=== PATIENT | female | born 1990 | race Caucasian/White ===

== ENCOUNTER 2022-03-08 06:37 | Inpatient (IN) | payer OTHER, SELFPAY ==
[2022-03-08] VITALS (65 sets, daily range): BP systolic 85–124; BP diastolic 43–81; PULSE 62–93; RESP 16; TEMP 36.4–36.9; O2SAT 98–100; BMI 26.8
[2022-03-08 07:34] LABS: SARS PCR* Negative SARS-CoV-2 (Negative)
[2022-03-08] MEDS: AMPICILLIN 2 GM in 0.9 % SODIUM CHLORIDE Mini-bag 100 ML IVPB (07:50)
[2022-03-08] MEDS: LACTATED RINGERS 1000 ML 1,000 ML 125 ML IV (07:50)
--- NOTE | 2022-03-08 11:58 | PM.OBHPLI ---
OB - H&P: HPI Labor/Induction History of Present Illness Date Seen: 03/08/22 Chief Complaint: The patient is a 32 year old 1 para 1 at 38 weeks gestation by known date of conception (IVF), who presents with PROM at 0400 this morning. has been uncomplicated. She has had some cramping, no regular contractions since PROM. Chief complaint: Maternity : 1 Para: 1 Narrative: Heather Delarosa is a 32 year old female with PROM of clear fluid at 0400 this morning. Uncomplicated . GBS positive, abx started on arrival. Rh+, rubella immune. History of Present Dating criteria: other (IVF) care: good care Ultrasounds: normal 1st trimester US Labs Blood type: O (+) positive Rubella: immune RPR/VDLR: nonreactive GBS status: positive HBsAG: negative Review of Systems Status of ROS: Reports: 10 or more systems reviewed and unremarkable except as noted in History and below Meds Home Medications and Allergies Home Medications Medication Instructions Recorded Confirmed Type citalopram 20 mg tablet 20 mg PO QDAY 03/08/22 03/08/22 History ferrous sulfate 325 mg (65 mg 325 mg PO DAILY 03/08/22 03/08/22 History iron) tablet (Feosol) prenat.vits,cassi,[id number] 1 tab .Route QDAY 03/08/22 03/08/22 History Allergies Allergy/AdvReac Type Severity Reaction Status Date / Time No Known Drug Allergies Allergy Verified 03/08/22 05:12 OB - H&P: Exam Physical Exam: Vital signs: Temp Pulse Resp BP Pulse Ox 98.1 F 89 16 108/65 100 03/08/22 11:40 03/08/22 07:56 03/08/22 10:30 03/08/22 07:56 03/08/22 05:17 Constitutional: Constitutional: no acute distress Routine HEENT Exam: Head: Present atraumatic Eye: Present EOMI and normal appearance ENT: Present mucous membranes moist Routine Neck Exam: Neck: Present full ROM Routine Respiratory Exam: Respiratory: Present CTA bilaterally Routine Cardiovascular Exam: Cardiovascular: RRR Comments: no murmur Detailed Labor and Delivery Exam: Dilation (cm): 1 Effacement (%): 50 Fetus (Single): Station: -1 Routine Skin Exam: Present intact Routine Neurological Exam: Present alert and oriented X3 OB - Problem Based A/P Additional Plan (1) Term : Status: Acute (2) PROM (premature rupture of membranes): Status: Acute Plan PROM 8 hours ago, recommend starting oral cytotec Continue abx per protocol for +GBS
[2022-03-08] MEDS: AMPICILLIN 1 GM in 0.9 % SODIUM CHLORIDE Mini-bag 100 ML IVPB ×3 (12:00→20:22)
[2022-03-08] MEDS: miSOPROStoL 25 MCG/0.25 TABLET PO ×2 (12:11→14:10)
[2022-03-08] MEDS: ROPIVACAINE 0.2% 100 ml 100 ML 12 MG EPIDURAL (16:35)
[2022-03-08] MEDS: LACTATED RINGERS 1000 ML 1,000 ML 200 ML IV (16:36)
--- NOTE | 2022-03-08 16:51 | PM.ANBPRC ---
[facility] Medical History (Updated 03/08/22 @ 12:02 by Kavitha Mathis MD) Term Social History Smoking Status: Never smoker Meds Home Medications and Allergies Home Medications Medication Instructions Recorded Confirmed Type citalopram 20 mg tablet 20 mg PO QDAY 03/08/22 03/08/22 History ferrous sulfate 325 mg (65 mg 325 mg PO DAILY 03/08/22 03/08/22 History iron) tablet (Feosol) prenat.vits,cassi,[id number] 1 tab .Route QDAY 03/08/22 03/08/22 History Allergies Allergy/AdvReac Type Severity Reaction Status Date / Time No Known Drug Allergies Allergy Verified 03/08/22 05:12 Results Labs Labs: Laboratory Results - last 24 hr 03/08/22 06:24 SARS-CoV-2 (PCR) Negative SARS-CoV-2 Vital Signs Vital Signs: Last Vital Signs Temp 98.5 F 03/08/22 15:55 Pulse 79 03/08/22 16:51 Resp 16 03/08/22 10:30 BP 93/50 L 03/08/22 16:51 Pulse Ox 100 03/08/22 16:45 Weight: 74.843 kg Height: 167.01 cm Anesthesia Procedures Epidural Insertion Patient Location: OB Start Time: 16:30 Stop Time: 17:30 Start Date: 03/08/22 Stop Date: 03/08/22 Reason for Block: procedure for pain Patient Position: sitting Performed By: Chepe Smith Preanesthetic Checklist: IV checked, risks and benefits discussed, monitors and equipment checked, pre-op evaluation and anesthesia consent Prep: chlorhexidine gluconate Monitoring: blood pressure monitoring, continuous pulse oximetry and heart rate Approach: midline Vertebral Space: lumbar (1-5) Epidural Technique: ORIANA saline Needle Type: Tuohy needle Injection Technique: continuous catheter Needle gauge: 17 Needle Length (cm): 10 cm Needle Insertion Depth (cm): 5 Catheter Gauge: 21 Catheter Type: multi-orifice Catheter at skin depth (cm): 9 Test Dose Result: negative
--- NOTE | 2022-03-08 17:00 | W.ANESCHARGE ---
Anesthesia Charges Start Date/Time Anesthesia Start Date: 03/08/22 Anesthesia Start Time: 16:30 Stop Date/Time Anesthesia Stop Date: 03/08/22 Anesthesia Stop Time: 17:30 Summary Emergency: No
[2022-03-08] MEDS: miSOPROStoL 800 MCG/4 TABLET PR (21:35)
[2022-03-08] MEDS: TRANEXAMIC ACID 100 MG/ML INJ 1000 MG IV (21:40)
[2022-03-08] MEDS: METHYLERGONOVINE MALEATE 0.2 MG/ML INJ IM (21:45)
[2022-03-08] MEDS: LIDOCAINE 1% MDV 20 ML INJECTION (21:46)
--- NOTE | 2022-03-08 22:06 | P.OBPRC_ITS ---
Procedure Procedure Done: [facility] Procedure Details: The patient is a 32 year-old admitted on 03/08/2022 at 38 Weeks, 0 Days gestation for PROM at 0400 on the morning of admission.? Cervical exam on admission was 1 cm/50 % effaced/-1 station with membranes ruptured in vertex presentation.? Contractions were absent.? heart rate demonstrated baseline 150 bpm with moderate variability, + accelerations, - decelerations; a category 1 tracing.? SROM occurred at 0400 with clear fluid. ? Labor Analgesia:? Epidural at 1700 ? Pitocin:? no ? Labor onset:? 1699 ? Complete:? 183 ? Pushing:? 1848 ? heart tones during second stage were category 2. ? At 2128 a viable femal infant delivered in vertex OA presentation over intact perineum via spontaneous vaginal delivery.? Infant was placed on maternal abdomen.? Cord was clamped and cut after a 30-60 second delay.? Nose and mouth were bulb suctioned.? Infant weight pending.? 6 at 1 minute and 8 at 5 minutes.? Shoulder dystocia: no.? Nuchal cord: no. ? Placenta delivered spontaneously and complete at 2131 with a 3 vessel cord. At this time, patient was noted to be bleeding briskly, 800 mcg cytotec DE given and bimanual massage provided. Because of continued bleeding IM TXA and methergine were given. After these measures, uterus was firm and bleeding normal. ? Mother and infant were stable after delivery. ? Lacerations:? 1st degree vaginal, repaired with 3-0 vicryl suture in one figure of 8 suture. ? Blood loss: 550 mL. Blood loss measurement type: QBL ? Sponge and needles counts are correct. Events: Premature Rupture of Membrane Induction method: per misoprostol protocol Delivery monitor: external FHT Route of delivery: Laceration description: Vaginal - 1st Degree Delivery repair: Vicryl Estimated blood loss (mL): 550 Anesthesia type: Epidural Gender: Female presentation: vertex Placental Delivery Description: Spontaneous Cord Description: 3 Vessels
[2022-03-08] MEDS: IBUPROFEN 600 MG TABLET PO (23:51)
[2022-03-09 04:00] VITALS: BP 107/59; PULSE 66; RESP 14; TEMP 36.6; O2SAT 97
[2022-03-09] MEDS: ACETAMINOPHEN 500 MG TABLET 1000 MG PO ×3 (04:17→18:04)
[2022-03-09 07:29] LABS: Hemoglobin* 11.2 gm/dL (12.0-16.0)
[2022-03-09] MEDS: DOCUSATE SODIUM 100 MG CAPSULE PO (08:12)
[2022-03-09] MEDS: IBUPROFEN 600 MG TABLET PO ×2 (08:13→14:56)
[2022-03-09] MEDS: CITALOPRAM HYDROBROMIDE 20 MG TABLET PO (08:13)
[2022-03-09 08:27] VITALS: BP 96/65; PULSE 54; RESP 16; TEMP 36.3; O2SAT 99
[2022-03-09] MEDS: LANOLIN CREAM 1 APPLIC TOPICAL (11:55)
--- NOTE | 2022-03-09 12:11 | P.OBPN_ITS ---
OB - PN:Subj Subjective Date Seen: 03/09/22 Patient comments OB post-: pain well controlled and tolerating diet [place] status: and doing well [place] feeding status: exclusively Narrative: Heather is a pp day 1 after . She has no complaints today. Pain well managed with tylenol and ibuprofen. Lochia moderate, occasional cramping. OB - PN: Obj Exam Physical Exam: Vital signs: Temp Pulse Resp BP Pulse Ox O2 Del Method 97.4 F L 54 L 16 96/65 99 03/09/22 08:27 03/09/22 08:27 03/09/22 08:27 03/09/22 08:27 03/09/22 08:27 03/09/22 08:27 Constitutional: Constitutional: no acute distress Detailed Abdominal Exam: Comments: Soft uterus 1 cm below umbilicus. No tenderness. OB - PN: Obj Data Labs Labs: Laboratory Results - last 24 hr 03/09/22 07:21 Hgb 11.2 L OB - PN: A/P Vaginal Delivery Assessment and Plan (1) Term : Status: Resolved Assessment and Plan: PP day #1 after (2) PROM (premature rupture of membranes): Status: Resolved Plan Plan: routine care Comments: likely discharge tomorrow.
[2022-03-09 12:23] VITALS: BP 104/64; PULSE 83; RESP 16; TEMP 36.8; O2SAT 96
[2022-03-09 15:34] VITALS: BP 97/61; PULSE 73; RESP 16; TEMP 36.6; O2SAT 97
[2022-03-09 20:00] VITALS: BP 92/61; PULSE 86; RESP 16; TEMP 36.3; O2SAT 95
[2022-03-10] VITALS: BP 91/55; PULSE 78; RESP 16; TEMP 36.4; O2SAT 95
[2022-03-10] MEDS: IBUPROFEN 600 MG TABLET PO ×2 (00:14→08:39)
[2022-03-10] MEDS: ACETAMINOPHEN 500 MG TABLET 1000 MG PO ×2 (03:27→12:59)
--- NOTE | 2022-03-10 07:50 | PM.OBDSVD1 ---
DS: Providers Provider Date Seen: 03/10/22 Date of admission: 03/08/22 06:37 Primary care physician: Kavitha Mathis MD Admitting Clinician: Kavitha Mathis MD Attending Physician on discharge: Kavitha Mathis MD DS: Diagnosis Discharge Diagnosis (1) Vaginal delivery: Status: Acute Exam Const: Vital Signs, click to edit/add: Vital Signs - 24 hr 03/09/22 08:27 03/09/22 12:23 03/09/22 15:34 Temperature 97.4 F L 98.3 F 97.9 F Pulse Rate [Pulse Oximeter] 54 L 83 73 Respiratory Rate 16 16 16 Blood Pressure [Le ft Arm] 96/65 104/64 97/61 Pulse Oximetry 99 96 97 Oxygen Delivery Me thod Room Air Room Air Room Air 03/09/22 20:00 03/10/22 00:00 Temperature 97.3 F L 97.5 F L Pulse Rate [Pulse Oximeter] 86 78 Respiratory Rate 16 16 Blood Pressure [Le ft Arm] 92/61 91/55 L Pulse Oximetry 95 95 Oxygen Delivery Me thod Room Air Room Air Common normals: no apparent distress General appearance: comfortable GI: Other: soft, non tender, uterus at umbilicus. Extremity: Other: without edema, redness or tenderness OB - DS: Summary Hospital Course Hospital Course: The patient is a 32 year old G 1 P 1 at 38 weeks gestation that was admitted to the Center on 03/08/22 for PROM. She had an uncomplicated vaginal delivery. She delivered a viable female . She is breast feeding. the patient has done well. Peripartum Data Infant delivery method: Vaginal Laceration description: Vaginal - 1st Degree complications: none [place] Gender: Female Infant Discharge Plan: Home [place] A Infant Gender: Female Discharge Plan: Home Time Spent with Patient Time attestation: Total time spent providing and/or coordinating discharge services: Time spent: Less than 30 minutes Discharge Plan Discharge Disposition: Home, Self-Care Date of Admission: 03/08/22 06:37 Attending Physician on Admission: Kavitha Mathis Attending Provider on Discharge: Kavitha Mathis Primary Care Provider: Kavitha Mathis Condition: Improved Anticipated Discharge Date/Time: 03/10/22 07:53 Discharge Medications: Continued citalopram 20 mg tablet 20 mg PO QDAY Label Comments: TAKE 1 TABLET BY MOUTH EVERY MORNING prenat.vits,cassi,[id number] 1 tab .Route QDAY Discontinued ferrous sulfate [Feosol] 325 mg (65 mg iron) tablet 325 mg PO DAILY Discharge Orders: Discharge Order (Routine); Ordered 03/10/22 Ordered By: Kavitha Mathis Patient Education: OB Over the Counter Medication Information Activity Level: No Restrictions Activity Detail: Pelvic rest [id number]. Discharge Diet: Regular Follow Up Appointments: Kavitha Mathis MD [Primary Care Provider] - [facility]
[2022-03-10] MEDS: DOCUSATE SODIUM 100 MG CAPSULE PO (08:39)
[2022-03-10] MEDS: CITALOPRAM HYDROBROMIDE 20 MG TABLET PO (08:47)
[2022-03-10 09:11] VITALS: BP 102/62; PULSE 78; RESP 16; TEMP 36.4; O2SAT 97
== END 2022-03-10 14:15 | disposition home or self-care (01) | DRG 807 ==
LOC: OB OUT 06:41 → OB 08:28
PROVIDERS: Admitting Provider Family Medicine; PCP Family Medicine; Visit Provider Family Medicine
DX: O42.02 Full-term premature rupture of membranes, onset of labor within 24 hours of rupture (principal); Z37.0 Single live birth; O99.824 Streptococcus B carrier state complicating childbirth; O70.0 First degree perineal laceration during delivery; Z3A.38 38 weeks gestation of pregnancy
CPT/HCPCS: 01967; 36415; 59200; 84112; 85018; 87635; 99211; A9270; J0290; J2210; J2795; J7120; S0020

== ENCOUNTER 2022-03-17 15:08 | Outpatient (CLI) | payer OTHER, SELFPAY ==
--- NOTE | 2022-03-17 15:10 | P.LACCB_ITS ---
Consult Note - Mom Date of Visit Date of visit: 03/17/22 business continuity consultant: Torri Mccall Visit Code: Visit Patient's Information Phone number: [phone] : 1 Para: 1 Allergies No Known Drug Allergies Allergy (Verified 03/08/22 05:12) Mother's Medical History: Medical History (Updated 03/19/22 @ 06:55 by Lis Palmer MD) anxiety Work Plans: returns to work in 12 weeks at [facility] [facility] Delivery Information Delivery type: Vaginal Weeks Gestation: 38.0 Gestational Age: AGA Weight: 3.175 kg Discharge Weight: 2918 kg Baby's Information Baby's Age at Visit: 9 days Baby's Provider or Clinic: Dr. Mathis Jaundice: Yes (to abdomen, resolving) Reason for Consult Reason for Consult: pre and post feeding weight Past Experience Past Experience: No Current Frequency of Day Feedings: every 2 hours around the clock Both Breasts: No (mom attempts but baby hasn't been latching well) Pumping Pumping: Yes (TID) Quantity Pumped: .5 - 1 oz total each time Supplementing EMB Supplement: Yes (baby takes 1 - 2 oz EBM or formula with every feeding) Formula Supplement: Yes Baby Elimination Number of Wet Diapers a Day: at least 9 Number of BM a Day: at least 3; yellow and seedy Breast/Nipple Condition Breast Information: WNL Engorgement: No Maternal Nipple Condition - Left: Common Nipple Maternal Nipple Condition - Right: Common Nipple Sore Nipples: No (resolved) Onsite Pre-Feed weight: 3.064 kg Post-Feed weight: 3.13 kg Milk Transferred (mL): 66 Pre-Nursing Left Nipple: Within Normal Limits Pre-Nursing Right Nipple: Within Normal Limits Post-Nursing Left Nipple: Within Normal Limits Post-Nursing Right Nipple: Within Normal Limits Assessments/Interventions Assessments/Interventions: Met with mom and this now 9 day old ex- term AGA baby for consult.? Mom reports she's been attempting to nurse but baby has a hard time latching so she's been supplementing 1 - 2 oz EBM or formula at every feeding.? Mom is pumping TID and up until today was getting about .5 oz but with a pumping session today she got about 2 oz total.? Mom also has questions re: her pump. Breasts WNL- symmetrical with rounded lower quadrants; mom reports noticing some breast changes during .? Her nipples are everted and don't flatten or retract with compression; no damage noted although mom reports a few days ago they were scabbed and much more sore. Baby has gained 35 grams/day since her last visit on 03/15 and is now 4% below BW at 9 DOL.? Per mom she has equal ROM when moving her head and extremities.? She has some scabbing to the left parietal area and mom reports she had something like a blister there caused by how her head was coming down the vaginal canal during labor.? She also has mild jaundice to her chest but per mom it's resolving; bili last checked on 03/14 and 03/15 with almost no increase in value.? Baby's palate and upper frenulum are WNL.? She easily extends her tongue past the gum line when sucking on a finger and the tongue has good lateral movement.? Lower frenulum hard to visualize, posterior? With verbal coaching re: hand position and using her thumb to tip her nipple to baby's nose, mom was able to latch baby independently to both sides.? Baby had a wide latch, mom was comfortable, nutritive suckling was observed, and swallowing was heard.? Mom did a good job of rousing baby when she started to fall asleep.? Baby nursed for about 30 minutes total and transferred 66 ml.? A pumping session was observed and tips given on how to use it.? Nipples were measured and it was suggested mom order some inserts to get the flange opening closer to 15 mm. Plan: 1. Continue to practice latching baby using the ideas above to get a wide latch; offer both sides each time and keep her awake and active at the breast.? OK to watch baby's cues and feed every 2 - 3 hours. 2. No medical need to continue supplementing, but if after nursing baby still seems hungry mom can either put her back on the breast or offer a little EBM. 3. Suggested she continue pumping TID until she feels more confident about her supply and/or baby no longer wants supplement after nursing. 4. Spoke with Dr. Mathis this morning: b/c baby has gained weight well since her visit on 03/15 and she had a good session in clinic today, ok to f/u next week for her 2 week WCC.? Reviewed with mom reasons to schedule an appointment earlier than next week.? 5. Offered a one month weight check in but mom declined today.? Suggested Baby Talk. Meds Home Medications and Allergies Home Medications Medication Instructions Recorded Confirmed Type citalopram 20 mg tablet 20 mg PO QDAY 03/08/22 03/08/22 History prenat.vits,cassi,[id number] 1 tab .Route QDAY 03/08/22 03/08/22 History Allergies Allergy/AdvReac Type Severity Reaction Status Date / Time No Known Drug Allergies Allergy Verified 03/08/22 05:12
== END 2022-03-17 15:09 | disposition home or self-care (01) ==
PROVIDERS: PCP Family Medicine; Visit Provider Family Medicine
DX: Z39.1 Encounter for care and examination of lactating mother (principal)
CPT/HCPCS: 99211

== ENCOUNTER 2022-03-18 23:25 | Emergency (ER) | payer OTHER, SELFPAY ==
[2022-03-18 23:44] VITALS: BP 120/85; PULSE 61; RESP 18; TEMP 36.6; O2SAT 98
--- NOTE | 2022-03-19 00:20 | ED.PSYCH ---
HPI - Psych General Chief Complaint: Psychiatric Problem/Disorder Stated Complaint: mental health Time Seen by Provider: 03/18/22 23:52 Source: patient Mode of arrival: ambulatory Limitations: no limitations History of Present Illness HPI Narrative: 32-year-old status post uncomplicated and delivery and days ago presents to the ED with worsening symptoms. She has a notable history of depression and anxiety, diagnosed about 8 years ago, has been on citalopram since, including during the . was conceived through IVF, otherwise uncomplicated. She has been in communication with her Ob provider, her citalopram was increased 4 days ago from 20-30 mg. She has no personal history of suicide attempt or mental health hospitalization. She states that starting 1-2 days after delivery, she started having increased anxiety which has been made worse by sleep deprivation and struggles with breast feeding. She is currently trying to feed the baby at the breast, pumping sometimes and also supplementing with formula. She has a spouse who is very helpful and both sets of their parents are involved and she reports that they are supportive and helpful also. She says that she has increased feelings of sadness and that she also has had fleeting thoughts of harming the baby, no specific plan. She has been active in therapy in the past and has a new appointment scheduled for 9:00 a.m. which is a little over 8 hours from now. This is specifically with a counselor. No medical or financial complications for them currently. Baby is healthy, safely attended to by patient's spouse at home. She reports her breasts were last emptied about 5-1/2 hours ago, did not bring her pump nor plan to continue emptying the breast while here. Partner is supportive of her coming for assessment. Reports that she only shared with him the concerns with her moods just tonight. She is noticing some tightness in the chest when she gets anxious but no palpitations, no syncope. She has no pertinent cardiac history. Is not using any alcohol, has no history of substance abuse. Denies any stimulant or other chemical use. She is not having any personal thoughts of self-harm no prior suicide attempt. No prior inpatient hospitalization. Past medical history she reports benign besides prior infertility workup. Surgical history is only notable for wisdom tooth extraction besides the retrieval process. Only home medication is citalopram, currently dosed at 30 mg once daily. Denies allergies. Socially, with good family support, positive financial situation, no substance abuse. Related Data Home Medications Medication Instructions Recorded Confirmed citalopram 20 mg tablet 20 mg PO QDAY 03/08/22 03/08/22 prenat.vits,cassi,[id number] 1 tab .Route QDAY 03/08/22 03/08/22 Previous Rx's Medication Instructions Recorded hydroxyzine HCl 25 mg tablet 25 - 50 mg PO TID PRN #40 tabs 03/19/22 Allergies Allergy/AdvReac Type Severity Reaction Status Date / Time No Known Drug Allergies Allergy Verified 03/08/22 05:12 Review of Systems Narrative: Medically reports that she is doing well with the exception of the mental health struggles, ROS is otherwise negative times 12 systems today. [facility] Medical History (Updated 03/19/22 @ 06:55 by Lis Palmer MD) Term Vaginal delivery Social History Smoking Status: Never smoker Do you use any of these nicotine containing products: None Second hand tobacco smoke exposure: No How often do you have a drink containing alcohol: never AUDIT-C Alcohol total score: 0 Non-prescribed substance use: denies use service: No Exam Const: Vital Signs, click to edit/add: Vital Signs - 24 hr 03/18/22 23:44 Temperature 97.8 F Pulse Rate [Right Pulse Oximeter] 61 Respiratory Rate 18 Blood Pressure [Ri ght Upper Arm] 120/85 Pulse Oximetry 98 Oxygen Delivery Me thod Room Air Documenting provider has reviewed patient's vital signs: yes Common normals: no apparent distress General appearance: cooperative HENMT: Common normals: normocephalic Head and scalp: normocephalic Other: Oropharynx covered with mask. Eye: Common normals: EOMs intact bilaterally, conjunctivae normal and no scleral icterus Conjunctiva: conjunctiva(e) normal Other: Normal visual tracking Neck & C-Spine: Common normals: full ROM and no lymphadenopathy Resp: Common normals: normal respiratory effort, no use of accessory muscles and clear to auscultation bilaterally Effort & inspection: able to speak in complete sentences Auscultation: clear to auscultation bilaterally Cardio: Common normals: regular rate, regular rhythm, S1 normal heart sound, S2 normal heart sound, no murmurs and peripheral pulses 2+ throughout Rate: regular rate Rhythm: regular rhythm Heart sounds: S1 normal and S2 normal Peripheral pulses: pulses 2+ throughout GI: Common normals: Normal to inspection, nondistended, normoactive bowel sounds present, soft to palpation, non-tender and no hepatosplenomegaly Palpation: soft and no hepatosplenomegaly Other: Fundal height not palpable. Extremity: Common normals: normal to inspection, full ROM and no pedal edema Neuro: Speech: speech normal Motor exam: strength 5/5 throughout, no tremor noted and no movement abnormalities noted Psych: Common normals: thought process normal Attitude: calm and engaged Mood and affect: depressed mood (Mild but with excellent insight.) Thought process: normal thought process Thought content: normal thought content Memory/cognition: memory grossly intact Insight: insight good Judgement: judgment good Skin: Common normals: no rashes or lesions noted Narrative: No bruising, scars, no signs of self-injury. General skin exam: no rashes or lesions noted Course Vital Signs Vital signs: Initial Vital Signs Temperature 97.8 F 03/18/22 23:44 Temperature Source Temporal Artery Scan 03/18/22 23:44 Pulse Rate 61 03/18/22 23:44 Pulse Rhythm 03/18/22 23:44 Respiratory Rate 18 03/18/22 23:44 Blood Pressure 120/85 03/18/22 23:44 Blood Pressure Mean 96 03/18/22 23:44 Blood Pressure Position Semi-Fowlers 03/18/22 23:44 Pulse Oximetry 98 03/18/22 23:44 Oxygen Delivery Method 03/18/22 23:44 Vital Signs Temperature 97.8 F 03/18/22 23:44 Pulse Rate 61 03/18/22 23:44 Respiratory Rate 18 03/18/22 23:44 Blood Pressure 120/85 03/18/22 23:44 Pulse Oximetry 98 03/18/22 23:44 Oxygen Delivery Method 03/18/22 23:44 Temperature 97.8 F 03/18/22 23:44 Pulse Rate 61 03/18/22 23:44 Respiratory Rate 18 03/18/22 23:44 Blood Pressure 120/85 03/18/22 23:44 Pulse Oximetry 98 03/18/22 23:44 Oxygen Delivery Method 03/18/22 23:44 MDM - Psych MDM Narrative Medical decision making narrative: Counseled patient on findings, recommend deck assessment. We both agree that labs will not likely be beneficial initially. My initial impression is that she would not likely need to be hospitalized and seems to have good resources and arranged planned outpatient. Awaiting assessment from psychologist for further instruction. Update 330: Spoke with Frieda from [facility], S her conversation with patient is reviewed. At this time, Frieda recommends that we let the patient rest, sleep in our ED for the next 4 hours. Does not think she would benefit from hospitalization at this time. If she is not feeling better in the morning hours, she will complete her psychology appointment on her phone and we will repeat the deck assessment per Frieda's recommendation. Discussed the risks and benefits of Vistaril. I discussed this further with the patient. There is some concern that this medication would decrease her milk supply. Patient is uncertain if she would want to try this. Frieda make recommendations for manager supply chain. Will plan to re-evaluate at 7:30 a.m.. Repeat evaluation 7:30 a.m.: Patient is hesitant leaf thinking that she is safe to go home, feeling better after sleeping. Requests to pump breast milk again before she leaves which we will arrange for her. She is safe to drive herself home. Discharge plan has been provided from [facility] regarding safety, followups if not improving. She will be given these prior to discharge. Alarm symptoms were coming back to the ED reviewed. Stressed the importance of using her support system to get more sleep. Stress safety plan if she feels she is unsafe around the baby. Discussed the risks and benefits of Vistaril, she would like a prescription to have for this on hand, prescription is provided. Use discussed. Discussed potential for decreased milk supply on this medication. Discharge Plan Discharge Clinical Impression: Post- depression Patient Disposition: Home w/ Parent or Adult Condition: Improved Instructions: Depression (DC) Additional Instructions: Keep your appointment with your counselor for today. Follow-up plan of care from [facility] that was discussed in the emergency department. They will help arrange a provider who can help manage medications for you, they will call you with this information. Continue taking your citalopram in the interim. Make a plan with her family and her partner to switch off childcare duties overnight to allow you to get at least 4 hours of uninterrupted sleep. Make plans to go to sleep when the baby does, even if that means less time with your partner initially. Allow them to take the 1st, then potentially you take the 2nd to allow both of you to get some uninterrupted sleep. Reviewed the warning signs and alarm symptoms that we discussed. I have given a prescription for hydroxyzine, as we also discussed. This has a small potential to decrease her milk supply slightly but may be beneficial overall. You may take this 1-2 tablets 3 times daily as needed for significant anxiety. Come back to the emergency department if your symptoms worsen significantly. Prescriptions: New hydroxyzine HCl 25 mg tablet 25 - 50 mg PO TID PRNQty: 40 1RF Rx Instructions: Max of 4 pills per day No Action citalopram 20 mg tablet 20 mg PO QDAY Label Comments: TAKE 1 TABLET BY MOUTH EVERY MORNING prenat.vits,cassi,[id number] 1 tab .Route QDAY Follow Up/Referrals: Kavitha Mathis MD [Primary Care Provider] - Stand Alone Forms: [employer] Info Instructions
--- OUTSIDE RECORDS SUMMARY | 2022-03-19 00:51 | XMS_ITS | Clinical Summary ---
:1990 Author Organization [facility] [place] [address] Care Team Providers Name Role Phone Pcp, No Primary Care Provider Unavailable Allergies No known active allergies Medications Medication Sig Dispensed Refills Start Date End Date Status vitamin-folic Take 1 tablet by 0 03/01/2019 Active acid 1 mg ( mouth once daily. RX) tablet/capsule citalopram (CELEXA) 20 Take 1 Tablet (20 90 Tablet 3 2 Active mg tabletIndications: mg) by mouth every Anxiety morning. psyllium powd Mix 1 tsp in 283 g 11 08/28/2021 Ac tive liquid then take by mouth once daily if needed for Constipation. ferrous sulfate, 65 mg Take 1 Tablet (325 0 10/03/19 22 Active elemental, tablet mg) by mouth once daily. citalopram (CELEXA) 10 Take 1 Tablet (10 90 Tablet 1 2 Active mg tabletIndications: mg) by mouth every Anxiety morning. Take with 20 mg tab for total for 30 mg/day Active Problems Problem Noted Date 10/13/2021 Overview: Formatting of this note is dif ferent from the original. Component Latest Ref Rng & Units 02/22/2022 HEMOGLOBIN 12.0 - 16.0 g/dL 11.0 (L) MCV 80 - 100 fL 98 Vaginal/Rectal OB Strep B PCR Positive (A) HEPATITIS C ANTIBODY Non-Reactive Non-Reactive Estimated Date of Delivery: 03/21/22 Patient's last menstrual period was 05/24 (exact date). Last Tdap- 12/28/2021 Last Flu vaccine- 01/27/2022 Glucose (GTT) result- Component Latest Ref Rng & Units 12/28/2021 HEMOGLOBIN 12.0 - 16.0 g/dL 10.6 (L) MCV 80 - 100 fL 98 TREPONEMA PALLIDUM Negative Negative GLUCOSE,GESTATIONAL 65 - 140 mg/dL 80 20 week US: FINDINGS: Sonographic imaging demonstrates a singl e living intrauterine gestation. Fetus demonstrates a regular cardiac rate of 146 beats per minute. Fetus has a transverse position, head maternal left. The place nta lies posterior without evidence of p lacenta previa. Amniotic fluid volume appears normal. Single deepest vertical pocket: 2.9 cm. The cervix is closed and measures 4.1 cm in length. The composite ul trasound gestational age is calculated a t 19 weeks 5 days with an estimated sonographic due date of 03/24/2022. The estimated weight is 318 grams which lies at the 31st %. The following biometric measurements wer e obtained: Biparietal diameter: 4.4 cm/19 weeks 3 d ays 19th% Head circumference: 16.7 cm/19 weeks 3 d ays 12th% Abdominal circumference: 15.1 cm/20 week s 3 days 51st% Femur length: 3.1 cm/19 weeks 4 days 21s t% The HC/AC ratio measures: 1.10 range (1. 09-1.26) On anatomic survey, there is a normal ap pearance of the cerebral ventricles, cavum septi pellucidi, cisterna magna and cerebellum. The nose, lips, and facial profile appear normal. The cervical, t horacic and lumbar spine are not well vi sualized due to position. There is a normal four-chamber heart view and the left and right ventricular outflow tracts appear normal. The diaphragm and stomach appear normal. The kidneys and bladder also appear normal. There is a normal three-vessel cord and cord insertion site. The four extremities appear normal. IMPRESSION: Incomplete visualization of the cervical , thoracic and lumbar spine due to position. Short-term follow-up recommended. Remainder of the anatomic survey is normal. Sonographic gestational age 19 weeks 5 d ays and sonographic due date 03/24/2022. Good correlation with dates. No Known Allergies OB History Para Term AB Living 1 0 0 0 0 0 SAB IAB Ectopic Multiple Live Births 0 0 0 0 0 # Outcome Date GA Lbr Sedrick/2nd Weight Sex Delivery Anes PTL Lv 1 Current Create lab flowsheet for OB labs- Component Latest Ref Rng & Units 09/04/2021 022 09/04/2021 3:16 PM 3:16 PM 3:16 PM HEMOGLOBIN 12.0 - 16.0 g/dL 10.5 (L) MCV 80 - 100 fL 95 ANTIBODY SCREEN Negative Negative SPECIMEN EXPIRATION DATE/TIME 09/07/21 23:59 RUBELLA IGG ANTIBODY Positive 5.36 CHLAMYDIA PROBE N GONORRHOEAE PROBE HIV-1/HIV-2 ANTIBODY Non-Reactive Non-Reactive ABORH O Rh Positive HBSAG Nonreactive Nonreactive TREPONEMA PALLIDUM Negative Negative Component Latest Ref Rng & Units 09/04/2021 3:21 PM HEMOGLOBIN 12.0 - 16.0 g/dL MCV 80 - 100 fL ANTIBODY SCREEN Negative SPECIMEN EXPIRATION DATE/TIME RUBELLA IGG ANTIBODY CHLAMYDIA PROBE Negative N GONORRHOEAE PROBE Negative HIV-1/HIV-2 ANTIBODY Non-Reactive ABORH HBSAG Nonreactive TREPONEMA PALLIDUM Negative Past Medical History: . Date ? ? Anxiety Past Surgical History: . Laterality Date ? ? wisdom Bilateral age 20 No data on file. 2021 Problems (from 08/28/21 t o present) No problems associated with this episod lorna Munoz RN.....10/13/2021 9:09 AM Generalized anxiety disorder 11/01/2019 Resolved Problems Problem Noted Date Resolved Date Anxiety 12/05/2018 11/01/2019 Encounters Date Type Specialty Care Team Description 03/15/2022 Office Visit Kavitha Mathis Anxi ety MD 03/15/2022 Travel 03/09/2022 Orders Only Scanner <No scans attac hed> 03/08/2022 Orders Only Scanner <No scans attac hed> 03/01/2022 OB Encounter Kavitha Mathis Pren atal Care (37wk 1d/Mild crampaniyah dave ar to menses cramping.) 03/01/2022 Travel 02/22/2022 OB Encounter Kavitha Mathis Pren atal Care (36wk 1d/Worsening V. Veins/Some pain in lower p meena maybe associated with V. Veins) 02/22/2022 Travel 02/08/2022 OB Encounter Kavitha Mathis Pren atal Care (34w 1d/Varicose vei n on vulva ) 02/08/2022 Travel 01/27/2022 OB Encounter Kavitha Mathis Pren atal Care (32w 3d) 01/27/2022 Travel 01/18/2022 OB Encounter Kavitha Mathis Pren atal Care (31w 1d/Feeling a bi t more fatigued. /Talk plan) 01/18/2022 Travel 12/28/2021 OB Encounter Kavitha Mathis Pren atal Care (28w 1d/Skin tag on left nip ple.) 12/28/2021 Orders Only Lab, [facility] 12/28/2021 Travel from Last 3 Months Immunizations Name Administration Dates Next Due DTP 01/04/1995, 07/27/1991, 1990, 1990, 1990 Hepatitis A (Peds) 01/07/2001, 12/01/1999 Hepatitis B (Peds) 10/04/1994, 02/23/1994, 01/14/1994 Hib Conjugate, Unspecified 01/04/1995 Influenza A (H1N1), Inactivated 05/09/2009 Influenza, IIV3 (Age >=3 years) 02/21/2016, 04/13/2013 Influenza, IIV4 01/27/2022, 02/28/2021, 03/01/2019, 02/05/2018 Influenza, IIV4 (=>6mos) MDV 02/17/2020, 04/10/2017 Influenza, ccIIV3 (Age >=18 Years) 01/22/2015 MMR 12/26/1995, 04/16/1991 Meningococcal Vaccine (Menactra) 12/19/2007 Polio Virus, Unspecified 01/04/1995, 07/27/1991, 1990, 1990 Td (Age >=7 Years) 01/09/2007, 01/05/2002 Tdap 12/28/2021, 10/03/2017 Typhoid (injectable) 05/13/2010 Typhoid (oral) 11/29/2011 Yellow Fever 11/29/2011 Family History Medical History Relation Name Comments Anxiety disorder Brother Anxiety disorder Father Cancer-breast Maternal Grandmother Osteoarthritis Mother s/p bilateral TK A Retinal detachment Mother Cancer-breast Paternal Grandmother Relation Name Status Comments Brother Father Maternal Grandmother Mother Paternal Grandmother Social History Tobacco Use Types Packs/Day Years Used Date Never Smoker Smokeless Tobacco: Never Used Tobacco Cessation: Counseling Given: Yes Alcohol Use Standard Drinks/Week Comments Yes 0 (1 standard drink = 0.6 oz pure alcoho l) Alcohol Habits Answer Date Recorded How often do you have a drink containing alcohol? Monthly or less 12/05/2018 How many drinks containing alcohol do you have on a 1 or 2 12/05/2018 typical day when you are drinking? How often do you have six or more drinks on one Never 12/05/2018 occasion? Comment: Not asked Sex Assigned at Date Recorded Not on file COVID-19 Exposure Response Date Recorded In the last 10 days, have you been in contact No / Unsure 03/15/2022 10:54 AM CDT with someone who was confirmed or suspected to have Coronavirus/COVID-19? Obstetrics History Para Term AB IAB SAB Ectopic Multiple Living Live Births 1 Date Outcome GA Total Labor/2nd/3rd Weight Sex Delivery Anes PTL Gretta A 1 A5 Name Clin Labor OB Episode Summary Episode Dates Estimated Date of Pregravid Weight TWG (As of ) Delivery 08/28/2021 - Present 03/21/2022 (03/19/2022) Progress Notes 03/01/2022 - 37wKavitha Moran MD SUBJECTIVE: Heather Nolasco is a 32 y.o. female at 37+ 1 weeks. No concerns. See visit comments. OBJECTIVE: see OB vitals flow sheet ASSESSMENT : 37+1 weeks gestation with no complicatio ns PLAN: Labor signs and symptoms reviewed with p atient including painful regular contractions or leaking fluid. RTC 1 weeks. Kavitha Mathis MD .............. ...... 03/01/2022 8:46 AM 02/22/2022 - 36wKavitha Moran MD SUBJECTIVE: Heather Nolasco is a 32 y.o. female at 36+ 1 weeks. No concerns other than ongoing varicose veins and hemorrhoids. See visit comments. OBJECTIVE: see OB vitals flow sheet ASSESSMENT : 36+1 weeks gestation with no complicatio ns PLAN: Labor signs and symptoms reviewed with p atient including painful regular contractions or leaking fluid. GBS and hemoglobin done today RTC 1 weeks. Kavitha Mathis MD .............. ...... 02/22/2022 8:30 AM 02/08/2022 - 34w1d - Kavitha Mathis MD SUBJECTIVE: Heather Nolasco is a 32 y.o. female at 34+ 1 weeks. She has noted a varicose vein on the vul va and possibly a hemorrhoid. Neither is particularly painful. See visit comments. OBJECTIVE: see OB vitals flow sheet Varicose vein on left labia and a hemorr hoidal skin tag at 6 o'clock ASSESSMENT : 34+1 weeks gestation with no complicatio ns PLAN: labor signs and symptoms reviewe d with patient including pain, cramping, bleeding or leaking fluid. RTC 2 weeks with GBS. Kavitha Mathis MD .............. ...... 02/08/2022 12:07 PM 01/27/2022 - 32w3d - Kavitha Mathis MD SUBJECTIVE: Heather Nolasco is a 32 y.o. female at 32+ 3 weeks. No concerns. See visit comments. OBJECTIVE: see OB vitals flow sheet ASSESSMENT : 32+3 weeks gestation with no complicatio ns PLAN: labor signs and symptoms reviewe d with patient including pain, cramping, bleeding or leaking fluid. RTC 2 weeks. Kavitha Mathis MD .............. ...... 01/27/2022 8:12 AM 01/18/2022 - 31w1d - Kavitha Mathis MD SUBJECTIVE: Heather Nolasco is a 32 y.o. female at 31+ 1 weeks. No concerns. See visit comments. OBJECTIVE: see OB vitals flow sheet ASSESSMENT : 31+1 weeks gestation with no complicatio ns PLAN: labor signs and symptoms reviewe d with patient including pain, cramping, bleeding or leaking fluid. RTC 2 weeks. Kavitha Mathis MD .............. ...... 01/18/2022 11:03 AM 12/28/2021 - 28w1d - Kavitha Mathis MD SUBJECTIVE: Heather Nolasco is a 31 y.o. female at 28+ 1 weeks. No concerns. See visit comments. OBJECTIVE: see OB vitals flow sheet ASSESSMENT : 28+1 weeks gestation with no complicatio ns PLAN: labor signs and symptoms reviewe d with patient including pain, cramping, bleeding or leaking fluid. DIabetes testing negative today. Hgb sta ble. Syphilis testing pending. TDaP given RTC 2 weeks. Kavitha Mathis MD .............. ...... 12/28/2021 9:06 AM 11/30/2021 - 24w1d - Kavitha Mathis MD SUBJECTIVE: Heather Nolasco is a 31 y.o. female at 24+ 1 weeks. No concerns. See visit comments. OBJECTIVE: see OB vitals flow sheet ASSESSMENT : 24+1 weeks gestation with no complicatio ns PLAN: labor signs and symptoms reviewe d with patient including pain, cramping, bleeding or leaking fluid. RTC 4 weeks with TDaP, hemoglobin, syphi lis and diabetes screening. Kavitha Mathis MD .............. ...... 11/30/2021 8:03 AM 11/02/2021 - 20w1d - Kavitha Mathis MD SUBJECTIVE: Heather Nolasco is a 31 y.o. female at 20+ 1 weeks. Had one episodes of lab abnormal sharp p ain overnight, nothing since and no other symptoms. No concerns. See visit comments. OBJECTIVE: see OB vitals flow sheet ASSESSMENT : 20+1 weeks gestation with no complicatio ns PLAN: Warning signs and symptoms reviewed with patient including pain, cramping, bleeding or leaking fluid. RTC 4 weeks. Kavitha Mathis MD .............. ...... 11/02/2021 8:35 AM 10/02/2021 - 15w5d - Kavitha Mathis MD SUBJECTIVE: Heather Nolasco is a 31 y.o. female at 15+ 5 weeks. She continues to No concerns. See visit comments. OBJECTIVE: see OB vitals flow sheet ASSESSMENT : 15+5 weeks gestation with no complicatio ns PLAN: Warning signs and symptoms reviewed with patient including pain, cramping, bleeding or leaking fluid. RTC 4 weeks with 20 week ultrasound. Kavitha Mathis MD .............. ...... 10/02/2021 3:49 PM 09/04/2021 - 11w5d - Kavitha Mathis MD FIRST OB VISIT HPI: Heather Nolasco is a 31 y.o. female G 1P0 at 11w5d with brewster intrauterine here today for a initial OB exam. Estimated due date is Estimated Date of Delivery: 03/21/22 based on IVF. Nausea/Vomiting: no Breast tenderness: no Fatigue: no Bleeding: no Taking vitamins: yes Options of sequential screen, cell-free DNA testing, amniocentesis were discussed. Patient is interested in pursuing testing. AMA: no Previous : no OB History Para Term AB Living 1 SAB IAB Ectopic Multiple Live Births # Outcome Date GA Lbr Sedrick/2nd Weight Sex Delivery Anes PTL Lv 1 Current Past Medical History: . Date ? ? Anxiety Past Surgical History: . Laterality Date ? ? wisdom Bilateral age 20 Family History Problem Relation Age of Onset ? ? Retinal detachment Mother ? ? Osteoarthritis Mother s/p bilateral TKA ? ? Anxiety disorder Father ? ? Anxiety disorder Brother ? ? Cancer-breast Maternal Grandmother ? ? Cancer-breast Paternal Grandmother Social History Tobacco Use ? ? Smoking status: Never Smoker ? ? Smokeless tobacco: Never Used Substance Use Topics ? ? Alcohol use: Yes Current Outpatient Medications Medication Sig ? ? citalopram (CELEXA) 20 mg tablet Take 1 Tablet (20 mg) by mouth every morning. ? ? vitamin-folic acid 1 mg ( RX) tablet/capsule Take 1 tablet by mouth once daily. ? ? psyllium powd Mix 1 tsp in liquid then take by mouth once daily if needed for Constipation. No current facility-administered medicat ions for this visit. Medications have been reviewed by me and are current to the best of my knowledge and ability. ALLERGIES Patient has no known allergies. MENTAL HEALTH HISTORY History of psychiatric diagnosis: Travis perez Current mental health provider: Yes: PCP Currently taking any psychiatric medicat ions? Yes INFECTION HISTORY Current Drug Use: none Relevant infection history from [facility] ionnaire: none REVIEW OF SYSTEMS Comprehensive ROS complete and negative other than noted in HPI and on OB Questionnaire. PHYSICAL EXAM BP 98/66 (Cuff Site: Left Arm, Position: Sitting, Cuff Size: Adult Regular) Pulse 75 Ht 1.67 m (5' 5.75) Wt 64.8 kg (142 lb 12.8 oz) LMP 06/14/2021 (Exact Date) SpO2 100% BMI 23.22 kg/m?? General Appearance: Alert, appropriate a ppearance for age. No acute distress. HEENT Exam: Grossly normal. Neck/Thyroid Exam: Supple, no masses, no frederic or enlargement. Lungs: Clear to auscultation bilaterally . Breast Exam: Not indicated. Cardiovascular Exam: Regular rate and rh ythm. S1, S2, no murmur. Abd: Soft, non-tender, no masses or orga nomegaly. Skin: no rashes or lesions. Lymphatics: no nodes palpable. Psychiatric Exam: Alert and oriented x 3 , appropriate affect. Pelvic Exam: Not applicable. ASSESSMENT/PLAN 31 y.o. at 11w5d with brewster int rauterine . ICD-10-CM 1. Encounter for supervision of normal f irst in first trimester Z34.01 HEMOGLOBIN ANTI HIV 1/2 ABORH TYPE ANTIBODY SCREEN HBSAG (HBS) TREPONEMA PALLIDUM RUBELLA IMMUNE STATUS UA W/ SEDIMENT EXAM REFLEXED PER CRITER IA URINE CULTURE GC CHLAMYDIA TRACH PROBE DNA SCREEN SEND OUT Satisfactory exam. Demonstrates appropriate and health-seeking behaviors toward her . Verbalizes good understanding of care schedule and the importance of coming to each visit as scheduled. Start/continue v itamins. Reviewed labs. She was encouraged to call the office with any questions or concerns. Body mass index is 23.22 kg/m??. Diet and expected weight gain discussed with patient. DEPRESSION SCREEN PHQ Depression Screening 10/25/2019 021 Date of PHQ exam (doc flow) 10/25/201908/22 1. Lack of interest/pleasure 1 - Several days 0 - Not at all 2. Feeling down/depressed 1 - Several da ys 1 - Several days PHQ-2 TOTAL SCORE 2 1 3. Trouble sleeping 0 - Not at all 1 - S everal days 4. Decreased energy 1 - Several days 2 - More than half the days 5. Appetite change 0 - Not at all 0 - No t at all 6. Feelings of failure 2 - More than marshall f the days 1 - Several days 7. Trouble concentrating 1 - Several day s 0 - Not at all 8. Activity level 0 - Not at all 0 - Not at all 9. Hurting yourself 0 - Not at all 0 - N ot at all PHQ-9 TOTAL SCORE 6 5 PHQ-9 Severity Level mild mild Functional Impairment somewhat difficult somewhat difficult Some recent data might be hidden Intervention: Currently receiving treat shantel Mathis MD 08/28/2021 - 10w5d - Kavitha Mathis MD Virtual Visit: As the provider for this virtual visit, I attest that I introduced myself to the patient, provided my credentials, disclosed my location, and determined that, based on a review of the [facility] chart and/or a discussion with mem bers of the patient's treatment team, telemedicine via a real-time, two-way, interactive audio and video platform is an appropriate and effective means of providi ng this service. The patient and I ellen joey agree that this visit is appropriate for telemedicine as well. Patient location (originating site [facility]/ [facility]): [address] [place] [phone] Provider location (distant site city/[facility]): [facility] Video/Phone start time (include am/pm de signation): 1:50 PM Video/Phone end time (include am/pm sue gnation): 2:10 PM Total time preparing to see this patient , [id number] time, and coordinating care time on the same calendar date: 20 minutes. EXAM - OB Heather Nolasco is a 31 y.o. female, G 1, P 0, here today for a exam. 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 Cycle Regularity: regular, every 28-30 d ays Flow: normal KAMILA by LMP Calculator: 03/21/2022, known EDC as IVF Date Reliability: definite On BCP's at conception: no MEDICAL HISTORY OB History Para Term AB Living 1 SAB IAB Ectopic Multiple Live Births # Outcome Date GA Lbr Sedrick/2nd Weight Sex Delivery Anes PTL Lv 1 Current Past Medical History: . Date ? ? Anxiety Past Surgical History: . Laterality Date ? ? wisdom Bilateral age 20 Family History: Family History Problem Relation Age of Onset ? ? Retinal detachment Mother ? ? Osteoarthritis Mother s/p bilateral TKA ? ? Anxiety disorder Father ? ? Anxiety disorder Brother ? ? Cancer-breast Maternal Grandmother ? ? Cancer-breast Paternal Grandmother Social History: Social History Tobacco Use ? ? Smoking status: Never Smoker ? ? Smokeless tobacco: Never Used Substance Use Topics ? ? 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 PHYSICAL EXAM LMP 09/06/2020 General Appearance: Alert, appropriate a ppearance for age. No acute distress Psychiatric Exam: Alert and oriented, ap propriate affect. ASSESSMENT Satisfactory exam. Demonstrates appropriate and health seeking behaviors toward her . Verbalizes good understanding of care schedule and the importance of coming to each visit as scheduled. Has supportive family rel ationship. PLAN Reviewed health maintenance issues inclu ding diet, exercise, caffeine intake, handling of cat litter, toxic substances, daily vitamins, child classes, choosing a or first assist registered nurse, and regular exams. She was encouraged to call the o ffice with any questions or concerns. Last Filed Vital Signs Vital Sign Reading Time Taken Comments Blood Pressure 105/70 03/15/2022 11:02 AM CDT Pulse 86 03/15/2022 11:02 AM CDT Temperature - - Respiratory Rate - - Oxygen Saturation 98% 03/15/2022 11:02 AM CDT Inhaled Oxygen Concentration - - Weight 67.9 kg (149 lb 9.6 oz) 03/15/2022 11:02 AM CDT Height 167 cm (5' 5.75) 09/04/2021 2:26 PM CDT Body Mass Index 24.33 09/04/2021 2:26 PM CDT Plan of Treatment Health Maintenance Due Date Last Done Comments BMI (ht and wt on same day) for 09/04/2022 09/04/2021, 020 01/2022, age 18+ 09/12/2020, Additional history exists Depression screening for age 12+ 03/15/2023 03/15/2022, , 10/25/2019, Additional history exists Pap test for age 21-65 09/12/2025 09/12/2020, 09/12/2020 Tetanus booster 12/29/2031 12/28/2021, 10/03/2017, 01/09/2007, Additional history exists Tdap Completed 12/28/2021, 10/03/2017 Influenza for age 9-49 Completed 01/27/2022, 02/28/2021, 02/17/2020, Additional history exists COVID-19 vaccine series Completed 02/06/2022, 03/26/2021, 07/25/2020, Additional history exists Hepatitis C screening for age Completed 02/22/2022 18-79 Procedures Procedure Name Priority Date/Time Associated Diagnosis Comme nts SCAN-LABORATORY 03/09/2022 12:00 Results for this REPORT AM CDT procedure are i n the results section. SCAN-LABORATORY 03/08/2022 12:00 Results for this REPORT AM CDT procedure are i n the results section. ANTI HCV Routine 02/22/2022 9:05 AM Need for hepatitis C R esults for this CDT screening test procedure are in the results section. HEMOGLOBIN Routine 02/22/2022 9:05 AM Encounter for Results for this CDT supervision of other procedu re are in normal , the result s third trimester section. VAGINAL/RECTAL OB Routine 02/22/2022 8:40 AM Encounter for Res ults for this STREP PCR CDT supervision of other procedu re are in normal , the result s third trimester section. GLUCOSE,GESTATIONAL Routine 12/28/2021 9:45 AM Encounter for R esults for this CDT supervision of other procedu re are in normal , the result s second trimester section. TREPONEMA PALLIDUM Routine 12/28/2021 9:45 AM Encounter for Re sults for this CDT supervision of other procedu re are in normal , the result s second trimester section. HEMOGLOBIN Routine 12/28/2021 9:45 AM Encounter for Results for this CDT supervision of other procedu re are in normal , the result s second trimester section. from Last 3 Months Results SCAN-LABORATORY REPORT (03/09/2022 12:00 AM CDT)Only the most recent of2 results within the time period is included. Narrative This result has an attachment that is no t available. Scanner OTHER ANTI HCV (02/22/2022 9:05 AM CDT) [facility] gist Method Time Signature HEPATITIS C Non-Reacti Non-Reacti 02/23/2022 [facility] ANTIBODY ve ve 12:44 AM CDT LABORATORY[facility] Comment: Antibodies to HCV not detected; does not exclude the possibility of exposure to HCV. Specimen Anatomical Collection Method / Collection Time Recei mansi Time (Source) Location / Volume Laterality Blood BLOOD SPECIMEN / Venipuncture / 02/22/2022 9:05 2021 9:05 Unknown Unknown AM CDT AM CDT Kavitha Mathis MD SEND OUTS Performing Organization Address City/State/ZIP Code Phon e Number [facility] [address] [place] [address] LABORATORY-CENTRAL 2000 LABORATORY (ABNORMAL) HEMOGLOBIN (02/22/2022 9:05 AM CDT)Only the most recent of2 results within the time period is included. athologist Signature HEMOGLOBIN 11.0 (L) 12.0 - 02/22/2022 [facility] 16.0 g/dL 9:09 AM CDT [facility] MCV 98 80 - 100 02/22/2022 [facility] fL 9:09 AM CDT [facility] Specimen Anatomical Collection Method / Collection Time Recei mansi Time (Source) Location / Volume Laterality Blood BLOOD SPECIMEN / Venipuncture / 02/22/2022 9:05 2021 9:05 Unknown Unknown AM CDT AM CDT Kavitha Mathis MD HEMATOLOGY Performing Organization Address City/[facility]/ZIP Code Phon e Number [facility] [address] [place] [address] (ABNORMAL) VAGINAL/RECTAL OB STREP PCR (02/22/2022 8:40 AM CDT) Patholo gist Method Time Signature Vaginal/Recta Positive (A) 02/24/2022 [facility] Strep B 10:14 AM CDT [facility] Comment: If susceptibility is needed due to penicillin allergy, contact lab. Specimen Anatomical Collection Method Collection Time Receive d Time (Source) Location / / Volume Laterality Other Non-Blood / 02/22/2022 8:40 AM 8:57 (Vaginal/Rectal) Unknown CDT AM CDT Kavitha Mathis MD MICROBIOLOGY Performing Organization Address City/[facility]/ZIP Code Phon e Number Pipewise [facility] [address] [place] [address] LABORATORY-CENTRAL 2000 LABORATORY TREPONEMA PALLIDUM (12/28/2021 9:45 AM CDT) Analysis Performed At Patho logist Time Signature TREPONEMA Negative Negative 12/29/2021 [facility] PALL[facility] 9:08 AM CDT [facility] Specimen Anatomical Collection Method / Collection Time Recei mansi Time (Source) Location / Volume Laterality Blood BLOOD SPECIMEN / Venipuncture / 12/28/2021 9:45 2021 9:45 Unknown Unknown AM CDT AM CDT Kavitha Mathis MD SEND OUTS Performing Organization Address City/[facility]/ZIP Code Phon e Number [facility] [address] [place] [address] LABORATORY-CENTRAL 2000 LABORATORY GLUCOSE,GESTATIONAL (12/28/2021 9:45 AM CDT) P athologist Signature GLUCOSE,GESTAT 80 65 - 140 12/28/2021 [facility] IONAL mg/dL 9:56 AM CDT [facility] Specimen Anatomical Collection Method / Collection Time Recei mansi Time (Source) Location / Volume Laterality Blood BLOOD SPECIMEN / Venipuncture / 12/28/2021 9:45 2021 9:45 Unknown Unknown AM CDT AM CDT Kavitha Mathis MD CHEMISTRY Performing Organization Address City/State/ZIP Code Phon e Number [facility] [address] [place] [address] from Last 3 Months Insurance Payer Benefit Plan / Subscriber ID Effective Dates Phone Addre ss Type Group [employer] [id number] 2021-Present [address] [place] [address] Care Teams Hostel Parent Relationship Specialty Start Date End Date Pcp, No PCP - General 11/20/18 .
--- NOTE | 2022-03-19 02:30 | ED.NURSE ---
Patient speaking with CORINE
--- NOTE | 2022-03-19 07:42 | ED.NURSE ---
pt is pumping
== END 2022-03-19 08:03 | disposition home or self-care (01) ==
PROVIDERS: Emergency Provider Family Medicine; PCP Family Medicine
DX: F53.0 Postpartum depression (principal)
CPT/HCPCS: 99282; 99283; 99284

== ENCOUNTER 2023-10-01 14:18 | Outpatient (CLI) | payer OTHER, SELFPAY ==
--- OUTSIDE RECORDS SUMMARY | 2023-10-17 16:41 | XMS_ITS | Clinical Summary ---
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 283 g 11 08/28/2021 Active citalopram (CELEXA) 20 mg tabletIndications:Anxie ty Take 1 Tablet (20 mg) by mouth every morning. Take with 10 mg tab for total dose of 30 mg 90 Tablet 3 03/31/2023 Active citalopram (CELEXA) 10 mg tabletIndications:Anxie ty Take 1 Tablet (10 mg) by mouth every morning. Take with 20 mg tab for total for 30 mg/day 90 Tablet 3 03/31/2023 Active desogestrel-ethinyl estradiol 0.15-30 mg-mcg (Apri) tabletIndications:Encou nter for initial prescription of contraceptive pills TAKE 1 TABLET BY MOUTH EVERY DAY 84 Tablet 2 07/19/2023 Active Active Problems Problem Noted Date Diagnosed Date 10/13/2021 Overview: Component Latest Ref Rng & Units 02/22/2022 HEMOGLOBIN 12.0 - 16.0 g/dL 11.0 (L) MCV 80 - 100 fL 98 Vaginal/Rectal OB Strep B PCR Positive (A) HEPATITIS C ANTIBODY Non-Reactive Non-Reactive Estimated Date of Delivery: 03/21/22 Patient's last menstrual period was 06/14/2021 (exact date). Last Tdap- 12/28/2021 Last Flu vaccine- 01/27/2022 Glucose (GTT) result- Component Latest Ref Rng & Units 12/28/2021 HEMOGLOBIN 12.0 - 16.0 g/dL 10.6 (L) MCV 80 - 100 fL 98 TREPONEMA PALLIDUM Negative Negative GLUCOSE,GESTATIONAL 65 - 140 mg/dL 80 20 week US: FINDINGS: Sonographic imaging demonstrates a single living intrauterine gestation. Fetus demonstrates a regular cardiac rate of 146 beats per minute. Fetus has a transverse position, head maternal left. The placenta lies posterior without evidence of placenta previa. Amniotic fluid volume appears normal. Single deepest vertical pocket: 2.9 cm. The cervix is closed and measures 4.1 cm in length. The composite ultrasound gestational age is calculated at 19 weeks 5 days with an estimated sonographic due date of 03/24/2022. The estimated weight is 318 grams which lies at the 31st %. The following biometric measurements were obtained: Biparietal diameter: 4.4 cm/19 weeks 3 days 19th% Head circumference: 16.7 cm/19 weeks 3 days 12th% Abdominal circumference: 15.1 cm/20 weeks 3 days 51st% Femur length: 3.1 cm/19 weeks 4 days 21st% The HC/AC ratio measures: 1.10 range (1.09-1.26) On anatomic survey, there is a normal appearance of the cerebral ventricles, cavum septi pellucidi, cisterna magna and cerebellum. The nose, lips, and facial profile appear normal. The cervical, thoracic and lumbar spine are not well visualized due to position. There is a normal four-chamber heart view and the left and right ventricular outflow tracts appear normal. The diaphragm and stomach appear normal. The kidneys and bladder also appear normal. There is a normal three-vessel cord and cord insertion site. The four extremities appear normal. IMPRESSION: Incomplete visualization of the cervical, thoracic and lumbar spine due to position. Short-term follow-up recommended. Remainder of the anatomic survey is normal. Sonographic gestational age 19 weeks 5 days and sonographic due date 03/24/2022. Good correlation with dates. No Known Allergies OB History Para Term AB Living 1 0 0 0 0 0 SAB IAB Ectopic Multiple Live Births 0 0 0 0 0 # Outcome Date GA Lbr Sedrick/2nd Weight Sex Delivery Anes PTL Lv 1 Current Create lab flowsheet for OB labs- Component Latest Ref Rng & Units 09/04/2021 09/04/2021 09/04/2021 3:16 PM 3:16 PM 3:16 PM [...] data on file. 2021 Problems (from 08/28/21 to present) No problems associated with this episode. Nanda Munoz RN.....10/13/2021 9:09 AM Generalized anxiety disorder 11/01/2019 Resolved Problems Problem Noted Date Diagnosed Date Resolved Date Anxiety 12/05/2018 11/01/2019 Encounters Date Type Department Care Team Description 07/19/2023 Refill [facility] [address] [place] [address] Kavitha Mathis MD Refill Request (Apri) from Last 3 Months Immunizations Name Administration Dates Next Due DTP 01/04/1995, 2,1990,06/16/18 91,1990 Hepatitis A (Peds) 01/07/2001,12/01/1999 Hepatitis B (Peds) 10/04/1994,02/23/1994, 994 Hib Conjugate, Unspecified 01/04/1995 Influenza A (H1N1), Inactivated 05/09/2009 Influenza, IIV3 (Age >=3 years) 02/21/2016,04/13 Influenza, IIV4 03/31/2023, 2,02/28/2021,03/01/20 19,02/05/2018 Influenza, IIV4 (=>6mos) MDV 02/17/2020,04/10/20 17 Influenza, ccIIV3 (Age >=18 Years) 01/22/2015 MMR 12/26/1995,04/16/1991 Meningococcal Vaccine (Menactra) 12/19/2007 Polio Virus, Unspecified 01/04/1995,/10/1991,1990,03/03/19 90 Td (Age >=7 Years) 01/09/2007,01/05/2002 Tdap 12/28/2021,10/03/2017 Typhoid (injectable) 05/13/2010 Typhoid (oral) 11/29/2011 Yellow Fever 11/29/2011 Family History Medical History Relation Name Comments Anxiety disorder Brother Anxiety disorder Father Cancer-breast Maternal Grandmother Osteoarthritis Mother s/p bilateral TKA Retinal detachment Mother Cancer-breast Paternal Grandmother Relation Name Status Comments Brother Father Maternal Grandmother Mother Paternal Grandmother Social History Tobacco Use Types Packs/Day Years Used Date Smoking Tobacco: Never Smokeless Tobacco: Never Tobacco Cessation:Counseling Given: Yes Alcohol Use Standard Drinks/Week Comments Yes 0 (1 standard drink = 0.6 oz pur e alcohol) PHQ-2 Answer Date Recorded PHQ-2 TOTAL SCORE 0 03/31/2023 Social Connections Answer Date Recorded Frequency of Communication with Friends and Fami ly Not on file 05/23/2023 Financial Resource Strain Answer Date R ecorded Difficulty of Paying Living Expenses 3 05/10/2022 Difficulty of Paying Living Expenses Not on file 05/10/2022 Food Insecurity Answer Date Recorded Worried About Running Out of Food in the Last Ye ar 1 05/10/2022 Transportation Needs Answer Date Record ed Lack of Transportation (Medical) 1 05/10/2022 Housing Stability Answer Date Recorded Unable to Pay for Housing in the Last Year 1 05/10/2022 Sex and Gender Information Value Date Recorded Sex Assigned at Not on file Gender Identity Not on file Sexual Orientation Not on file Obstetrics History Para Term AB IAB SAB Ectopic Multiple Livin g Live Births 1 1 1 1 1 Date Outcome GA Total Labor Labor/2nd/3rd Weight Sex Delivery Anes PTL Gretta A1 A5 Name Cl in 10/17 /2022 Term 38w 1d F Vag N Coni ng 6 8 Wendy Rai in Michelle ventura MD Complications: Hem orrhage Delivery Location:Hospital Last Filed Vital Signs Vital Sign Reading Time Taken Comments Blood Pressure 89/60 03/31/2023 8:10 AM AIR BRUSH DECORATOR Pulse 72 03/31/2023 8:10 AM AIR BRUSH DECORATOR Temperature - - Respiratory Rate - - Oxygen Saturation 100% 03/31/2023 8:10 AM AIR BRUSH DECORATOR Inhaled Oxygen Concentration - - Weight 63.4 kg (139 lb 12.8 oz) 03/31/2023 8:10 AM AIR BRUSH DECORATOR Height 167.7 cm (5' 6.02) 03/31/2023 8:10 AM CS T Body Mass Index 22.55 03/31/2023 8:10 AM AIR BRUSH DECORATOR Plan of Treatment Health Maintenance Due Date Last Done Comments Influenza for age 9-49 01/22/2024 , 01/27/2022, 02/28/2021, Additional history exists BMI (ht and wt on same day) for age 18+ 03/31/2024 03/31/2023, 05/10/2022, 09/04/2021, Additional history exists Depression screening for age 12+ 03/31/2024 03/31/2023, 05/10/2022, 03/15/2022, Additional history exists Pap test for age 21-65 09/12/2025 09/12/2020, 2020 Tetanus booster 12/29/2031 12/28/2021, 09/20, 01/09/2007, Additional history exists HIV for age 15-65 Completed 09/04/2021 Tdap Completed 12/28/2021, 10/03/2017 Hepatitis C screening for age 18-79 Completed 02/22/2022 COVID-19 vaccine series Completed 03/19/20, 02/06/2022, 03/26/2021, Additional history exists Pneumococcal series for age 6-64 Aged Out No longer eligible based on patient's age to complete this topic Procedures Procedure Name Priority Date/Time Associated Diagnosis Comments ANTI HCV Routine 02/22/2022 9:05 AM CDT Need for hepatitis C screening test ANTI HIV 1/2 Routine 09/04/2021 3:16 PM CDT Encounter for supervision of normal first in first trimester RENEWABLE ENERGY ENGINEER THIN PREP PAP SCREEN IMAGED Routine 09/12/2020 9:20 AM CDT Screening for cervical cancer from Last 3 Months or Most Recently Relevant to Health Maintenance Results * ANTI HCV (02/22/2022 9:05 AM CDT) [facility] HEPATITIS C ANTIBODY Non-React karon Non-React karon 02/23/2022 12:44 AM CDT [facility] LABORAT[facility] Comment:Antibodies to HCV no t detected; does not exclude the possibility of exposure to HCV. Blood BLOOD SPECIMEN / Unknown Venipuncture / Unknown 02/22/2022 9:05 AM CDT 02/22/2022 9:05 AM CDT Kavitha Mathis MD SEND OUTS Performing Organization Address City/[facility]/ZIP Co de Phone Number [facility] [address] [place] [address], [place] * ANTI HIV 1/2 (09/04/2021 3:16 PM CDT) [facility] HIV-1/HIV-2 ANTIBODY Non-Reacti ve Non-Reacti ve 09/04/2021 10:45 PM CDT [facility] Comment:HIV-1 p24 and HIV-1/ HIV-2 Ab not detected. Blood BLOOD SPECIMEN / Unknown Venipuncture / Unknown 09/04/2021 3:16 PM CDT 09/04/2021 3:20 PM CDT Kavitha Mathis MD SEND OUTS [facility] LAB[facility] [address] [place] [address], [place] * RENEWABLE ENERGY ENGINEER THIN PREP PAP SCREEN IMAGED [[id number]] (09/12/2020 9:20 AM CDT) Case Report Gynecologic Cytology Report ? Case: [id number] ? Authorizing Provider: ??Kavitha Mathis MD Collected: ? 09/12/2020 0920 ? Ordering Location: ? [facility] ?? Received: ?09/12/2020 1010 ? Clinic ? First Screen: ?Haim Styles ? Specimen: ?RENEWABLE ENERGY ENGINEER ThinPrep Vial Screening, Cervical ? 09/23/2020 3:24 PM CDT [facility] INTERPRETATION/ RESULT NEGATIVE FOR INTRAEPITHELIAL LESION OR MALIGNANCY (NIL) (none) 09/23/2020 3:24 PM CDT [facility] LABORATORY-C ENTRAL LABORATORY IMEN ADEQUACY Satisfactory for evaluation Endocervical component present 09/23/2020 3:24 PM CDT [facility] LABORATORY-C ENTRAL LABORATORY HPV REQUEST HPV and PAP 09/23/2020 3:24 PM CDT [facility] ENTRMN LABORATORY Date of LMP 09/06/2020 09/23/2020 3:24 PM CDT [facility] Last Pap Date 2018 09/23/2020 3:24 PM CDT [facility] ENTRAL LABORATORY Last Pap Result NIL 3:24 PM CDT [facility] Abnormal Pap or [place] Bx in last 5 years No 09/23/2020 3:24 PM CDT [facility] ENTRAL LABORATORY Menstrual Status Regular Periods 09/23/2020 3:24 PM CDT [facility] [place] Bx Done Today No 09/23/2020 3:24 PM CDT [facility] Additional Information None given 09/23/2020 3:24 PM CDT [facility] LABORATORY Comment: Cytology is screened at [facility], Central Laboratory - [address], [place] [address] and [facility] - [address], [place] [address] and [facility] - [address] [place] [address] Interpreted at [facility] - [address], [place] [address] Automated Review Successful 09/23/2020 3:24 PM CDT [facility] Comment:Specimen processed s uccessfully by automated legal file clerk device, ThinPrep Imaging System, [employer] ANCILLARY TESTING RENEWABLE ENERGY ENGINEER HPV Ordered, Please see separate report 09/23/2020 3:24 PM CDT [facility] Note The pap test is a screening technique, not a diagnostic procedure. It is used primarily to screen for squamous cancers and precursor lesions. Published studies have shown that it is subject to both false negative and false positive results. The pap test should not be used as the sole means to diagnose or exclude pre-malignant and malignant lesions. 09/23/2020 3:24 PM CDT [facility] Other (Cervical) Non-Blood / Unknown 09/12/2020 9:20 AM CDT 09/12/2020 10:10 AM CDT Kavitha Mathis MD PATHOLOGY/CYTOL OGY [facility] [address] [place] [address], from Last 3 Months or Most Recently Relevant to Health Maintenance Care Teams Landing Gear Mechanic Relationship Specialty Start Date End Date Kavitha Mathis MD [address], [place] [id number] PCP - General Family Practice 09/03/22
== END 2023-10-01 14:19 | disposition home or self-care (01) ==
LOC: NFLDREF 10-17 16:39
PROVIDERS: PCP Family Medicine; Referring Provider Family Medicine; Visit Provider Nurse Practitioner
DX: R30.0 Dysuria (principal); N30.01 Acute cystitis with hematuria
CPT/HCPCS: 87086; 87186

== ENCOUNTER 2025-03-30 23:45 | Outpatient (CLI) | payer OTHER, SELFPAY ==
[2025-03-31 00:07] VITALS: BP 109/61; PULSE 70
[2025-03-31 00:08] VITALS: RESP 16; TEMP 36.6
[2025-03-31 00:24] LABS: Amnisure Rom* Negative
--- NOTE | 2025-03-31 02:35 | PC.OBNST ---
NST Note NST Note Start: 03/30/25 23:50 Freq: ONCE Status: Active Protocol: Document 03/31/25 02:28 URIEL (Rec: 03/31/25 02:35 URIEL [id number]) NST Note 2 Para (# of births) 1 EDC 04/10/25 Gestational Age In 38 Weeks & 4 Days Weeks & Days Patient Presented Contractions/cramping,Leaking fluid with Complaint(s) of Reactive Yes Appropriate for Yes Gestational Age ARACELI Cortez, RNC Date 03/31/25 Reactive Yes Appropriate for Yes Gestational Age ARACELI Lewis, RNC Date 03/31/25 OB NST charge Yes Complete NST Note Yes via Write Note The provider's electronic signature indicates the NST is reactive/appropriate for gestational age. *Note to provider: If an addendum is required, open the patient's chart and click on the note under the Nurse/Allied Health tab.
--- NOTE | 2025-03-31 22:54 | W.PM.NSTNOTE ---
NST Note NST Note NST Note: NST Note NST Note Start: 03/30/25 23:50 Freq: ONCE Status: Discharge Protocol: Document 03/31/25 02:28 URIEL (Rec: 03/31/25 02:35 URIEL [id number]) NST Note 2 Para (# of births) 1 EDC 04/10/25 Gestational Age In 38 Weeks & 4 Days Weeks & Days Patient Presented Contractions/cramping,Leaking fluid with Complaint(s) of Reactive Yes Appropriate for Yes Gestational Age ARACELI Cortez, RNC Date 03/31/25 Reactive Yes Appropriate for Yes Gestational Age ARACELI Lewis, RNC Date 03/31/25 OB NST charge Yes Complete NST Note Yes via Write Note Addendum: FHT: Moderate variability, baseline 120-125 bpm, accels, no decels. Anne occasionally
== END 2025-03-31 02:28 | disposition home or self-care (01) ==
LOC: OB OUT 23:45 → OB 23:46
PROVIDERS: PCP Family Medicine; Visit Provider Student in an Organized Health Care Education/Training Program
DX: O47.1 False labor at or after 37 completed weeks of gestation (principal); Z3A.38 38 weeks gestation of pregnancy
CPT/HCPCS: 59025; 84112; G0463

== ENCOUNTER 2025-04-08 02:01 | Inpatient (IN) | payer OTHER, SELFPAY ==
[2025-04-08] VITALS (38 sets, daily range): BP systolic 102–126; BP diastolic 58–76; PULSE 59–122; RESP 16; TEMP 36.4–36.9; O2SAT 89–100; BMI 28.2
[2025-04-08 02:18] LABS: Hematocrit* 32.8 % (33.0-51.0); Hemoglobin* 11.3 gm/dL (12.0-16.0); Immature Granulocytes Abs Auto 0.05 K/uL (0.00-0.30); Immature Granulocytes Pct Auto 0.5 %; Lymphocytes Absolute Auto 3.17 K/uL (0.90-2.90); Mean Corpuscular HGB Conc 35 gm/dL (32-36); Mean Corpuscular Hemoglobin 33 pg (26-34); Mean Corpuscular Volume 96 fL (80-100); RDW Coefficient of Variation % 12.3 % (11.5-15.5); Red Blood Count* 3.43 m/uL (4.00-5.20); White Blood Count* 10.84 K/uL (4.50-11.00)
[2025-04-08] MEDS: LACTATED RINGERS 1000 ML 1,000 ML 900 ML IV (02:20)
[2025-04-08 02:21] LABS: Slide Review Reflex No
[2025-04-08] MEDS: AMPICILLIN 2 GM in 0.9 % SODIUM CHLORIDE Mini-bag 100 ML IVPB (02:22)
--- NOTE | 2025-04-08 03:02 | PM.OBHPLI ---
OB - H&P: HPI Labor/Induction History of Present Illness Time Seen by Provider: 02:30 Date Seen: 04/08/25 Chief Complaint: The patient is a 35 year old 2 para 1 at 39+5 weeks gestation by embryo transfer, who presents with SROM and active labor. Chief complaint: Maternity : 2 Para: 1 Narrative: Heather Delarosa is a 35 year old female at 39+5 weeks by embryo transfer who presents with SROM and active labor. Patient was awakened with gross rupture of membranes at 0115. Frequent, painful contractions upon arrive. Found to be 7-8 cm on initial cervical exam. FHT category I. Meconium fluid present, and pediatric provider was notified. Progressed to complete and is currently pushing. complicated by AMA, IVF conception, MDD and anxiety on citalopram, hx of post- hemorrhage. GBS positive and has received one dose of ampicillin. History of Present Dating criteria: other (embryo transfer) care: good care Ultrasounds: normal 1st trimester US and normal mid trimester US (Declined level 2) Labs Blood type: O (+) positive Rubella: immune RPR/VDLR: nonreactive GBS status: positive HBsAG: negative Narrative: Antibody screen negative Hep C negative GCT 99 low risk NIPT Review of Systems Status of ROS: Reports: 10 or more systems reviewed and unremarkable except as noted in History and below Meds Home Medications and Allergies Home Medications ?Medication ?Instructions ?Recorded ?Confirmed ?Type citalopram 20 mg tablet 20 mg PO QDAY 03/08/22 03/30/25 History ferrous sulfate 325 mg (65 mg 325 mg PO DAILY 03/30/25 03/30/25 History iron) tablet (iron) vit no.95-ferrous 1 tab PO DAILY 03/30/25 03/30/25 History fumarate 28 mg-folic acid 800 mcg tablet ( Multivitamins) Allergies Allergy/AdvReac Type Severity Reaction Status Date / Time No Known Drug Allergies Allergy Verified 03/30/25 23:56 OB - H&P: Exam Physical Exam: Vital signs: Pulse BP Pulse Ox 71 118/62 100 04/08/25 02:55 04/08/25 02:55 04/08/25 02:56 Narrative: General appearance: Well-appearing adult female. Alert, oriented and appropriate. Lying back in hospital bed. HEENT: EOMI, no conjunctival injection or discharge. MMM. Neck: Supple. CV: RRR, no rubs, murmurs or extra heart sounds. Pulm: CTAB, no wheezes, rales or rhonchi. Abdomen: Gravid. MSK: Moving all extremities. Ext: Warm and well-perfused. No LE edema. Skin: No rashes appreciated over exposed skin. Neuro: Grossly normal strength and sensation. No focal deficits. Psych: Normal affect. Detailed Labor and Delivery Exam: Dilation (cm): 10 Effacement (%): 100 Cervix position: anterior Contraction frequency (min): 3 Fetus (Single): Station: +2 Amniotic Membrane Status: SROM Amniotic Membrane Fluid Description: Meconium Stained Heart Rate Baseline: 120 Monitor Accelerations: Present Monitor Decelerations: Variable Network Security Engineer Variability: Moderate (6-25) OB - Results Labs Labs: Short CBC 04/08/25 Range/Units 02:14 WBC 10.84 (4.50-11.00) K/uL Hgb 11.3 L (12.0-16.0) gm/dL Hct 32.8 L (33.0-51.0) % Plt Count 210 (140-440) K/uL OB - Problem Based A/P Additional Plan (1) SROM (spontaneous rupture of membranes): Status: Acute (2) Term : Status: Acute Plan - Expectant management - Trial of nitrous oxide for pain management - FHT currently category II, variable with pushing - GBS positive s/p single dose of ampicilin - Dr Mathis will take over labor management - Dr Ramirez present as peds provider for meconium fluid - Anticipate vaginal delivery
[2025-04-08] MEDS: OXYTOCIN 30 unit/500 ML in NS 30 UNIT/500 ML BAG 300 UNIT IVPB (04:10)
[2025-04-08] MEDS: IBUPROFEN 600 MG TABLET PO ×3 (04:19→19:43)
--- NOTE | 2025-04-08 04:35 | W.PM.VAGD1_ITS ---
Procedure Delivery date: 04/08/25 Procedure Done: Global Events: Meconium Stained Fluid and AMA Intrapartal Events: Precipitous Labor <3 Hrs Delivery monitor: external FHT and external uterine Route of delivery: Laceration description: None Estimated blood loss (mL): 50 Anesthesia type: None Narrative: The patient is a 35 year-old admitted on 04/08/2025 at 39 Weeks, 5 Days gestation for SROM, active labor.? Cervical exam on admission was 8 cm/100 % effaced/0 station with membranes ruptured in vertex presentation.? Contractions were every 2-4 minutes.? heart rate demonstrated baseline 130 bpm with moderate variability, + accelerations, - decelerations; a category 1 tracing.? SROM occurred at 0119 with meconium fluid. Second provider was present at delivery for meconium stained fluid ? Labor Analgesia:? none ? Pitocin:? yes, post delivery ? Labor onset:? 68753 ? Complete:? 0219 ? Pushing:? 0221 ? heart tones during second stage were category 2. ? At 0401 a viable female infant delivered in vertex OA presentation over intact perineum via spontaneous vaginal delivery.? Infant was placed on maternal abdomen.? Cord was clamped and cut after a 30 second delay and because of poor respiratory effort, brought to the warmer for resuscitation.? ? Infant weight pending.? 5 at 1 minute and 8 at 5 minutes and 9 at 10 minutes.? Shoulder dystocia: no.? Nuchal cord: yes, loose, reduced at perineum. ? Placenta delivered spontaneously and complete at 0409 with a 3 vessel cord. ? Mother and were stable after delivery. ? Lacerations:? none. ? Blood loss: 50 mL. Blood loss measurement type: QBL ? Sponge and needles counts are correct. [place] Infant Gender: Female presentation: vertex Placental Delivery Description: Spontaneous Cord Description: 3 Vessels, Nuchal Cord and Loose
[2025-04-08] MEDS: DOCUSATE SODIUM 100 MG CAPSULE PO (13:03)
[2025-04-09 00:43] VITALS: BP 109/69; PULSE 60; RESP 16; TEMP 36.7; O2SAT 97
[2025-04-09] MEDS: ACETAMINOPHEN 500 MG TABLET 1000 MG PO (00:46)
[2025-04-09 06:23] LABS: Hemoglobin* 10.8 gm/dL (12.0-16.0)
[2025-04-09 09:45] VITALS: BP 103/67; PULSE 60; RESP 16; TEMP 36.6
[2025-04-09] MEDS: DOCUSATE SODIUM 100 MG CAPSULE PO (09:48)
[2025-04-09] MEDS: IBUPROFEN 600 MG TABLET PO (09:48)
[2025-04-09] MEDS: CITALOPRAM HYDROBROMIDE 20 MG TABLET PO (14:00)
[2025-04-09 16:00] VITALS: BP 115/76; PULSE 60; RESP 16; TEMP 36.4
--- NOTE | 2025-04-09 16:27 | PM.OBDSVD1 ---
DS: Providers Provider Time Seen by Provider: 07:10 Date Seen: 04/09/25 Date of admission: 04/08/25 02:01 Primary care physician: Kavitha Mathis MD Admitting Clinician: Susan Ramirez MD Attending Physician on discharge: Pricila Castellanos MD Date of Discharge: 04/09/25 DS: Diagnosis Discharge Diagnosis (1) Term : Status: Acute (2) Vaginal delivery: Status: Acute Exam Const: Vital Signs, click to edit/add: Vital Signs - 24 hr 04/08/25 20:24 04/09/25 00:43 04/09/25 09:45 Temperature 97.9 F 98.1 F 97.8 F Pulse Rate [Pulse Oximeter] 61 60 60 Respiratory Rate 16 16 16 Blood Pressure [Ri ght Arm] 119/75 109/69 103/67 Pulse Oximetry 97 97 Oxygen Delivery Me thod Room Air Room Air Documenting provider has reviewed patient's vital signs: yes Common normals: no apparent distress General appearance: cooperative HENMT: Common normals: normocephalic Head and scalp: normal to inspection and normocephalic Neck & C-Spine: Common normals: full ROM Resp: Common normals: normal respiratory effort and clear to auscultation bilaterally Auscultation: clear to auscultation bilaterally Cardio: Common normals: regular rate, regular rhythm, S1 normal heart sound and S2 normal heart sound Rate: regular rate Rhythm: regular rhythm Heart sounds: S1 normal and S2 normal GI: Common normals: Normal to inspection, nondistended, normoactive bowel sounds present : Uterus: U/2 and firm Extremity: Common normals: normal to inspection OB - DS: Summary Hospital Course Hospital Course: The patient is a 35 year old G 2 P 2 at 39.6 weeks gestation that was admitted to the Center on 04/08/25 for active spontaneous labor. She had an uncomplicated vaginal delivery. She delivered a viable female . She is breast and bottle feeding. the patient has done well. Peripartum Data Infant delivery method: Vaginal Laceration description: None complications: none [place] Infant Gender: Female Infant Discharge Plan: Home Status at Discharge Functional status at discharge: independent ambulation Overall status at discharge: patient is back to baseline Time Spent with Patient Time attestation: Total time spent providing and/or coordinating discharge services: Discharge Plan Discharge Disposition: Home, Self-Care Date of Admission: 04/08/25 02:01 Attending Provider on Discharge: Pricila Castellanos Primary Care Provider: Kavitha Mathis Condition: Improved Anticipated Discharge Date/Time: 04/09/25 16:25 Discharge Medications: Continued ferrous sulfate [iron] 325 mg (65 mg iron) tablet 325 mg PO DAILY PNV no.95-ferrous fumarate-FA [ Multivitamins] 28 mg iron- 800 mcg tablet 1 tab PO DAILY citalopram 20 mg tablet 20 mg PO QDAY Patient Comments: TAKE 1 TABLET BY MOUTH EVERY MORNING Discharge Orders: Discharge Order (Routine); Ordered 04/09/25 Ordered By: Pricila Castellanos Patient Education: OB Vaginal/Bottle Feeding Activity Level: Activity as Tolerated Activity Detail: 6 weeks pelvic rest Discharge Diet: Regular Follow Up Appointments: Kavitha Mathis MD [Primary Care Provider, Family Practice] Forms: MyHealth Info Instructions Discharge Comments: schedule [address] Mathis
== END 2025-04-09 17:27 | disposition home or self-care (01) | DRG 807 ==
LOC: OB OUT 02:02 → OB 02:02
PROVIDERS: Admitting Provider Family Medicine; PCP Family Medicine; Visit Provider Family Medicine
DX: O99.824 Streptococcus B carrier state complicating childbirth (principal); Z37.0 Single live birth; O77.0 Labor and delivery complicated by meconium in amniotic fluid; O62.3 Precipitate labor; O99.344 Other mental disorders complicating childbirth; F41.9 Anxiety disorder, unspecified; F32.9 Major depressive disorder, single episode, unspecified; Z3A.39 39 weeks gestation of pregnancy
CPT/HCPCS: 36415; 85018; 85025; 86592; 86850; 86900; 86901; A9270; J0290; J7120